=== PATIENT | female | born 2005 | race Caucasian/White ===

== ENCOUNTER 2023-11-29 13:24 | Outpatient (CLI) | payer OTHER, SELFPAY ==
--- NOTE | ~2023-11-29 | US_ITS ---
EXAMINATION: US OB /maternal detail DATE: 11/29/2023 14:44 INDICATION: Encounter for screening. TECHNIQUE: Real-time ultrasound of the pelvis was performed. COMPARISON: None. FINDINGS: There is a single living fetus in breech presentation. The placenta is posterior, well away from the cervix. heart rate is 157 beats per minute (bpm). The amniotic fluid index is 12.4 cm, which i s normal. The cervical length is 5.1 cm on transabdominal images, which is normal. The following biometric data were obtained: Biparietal diameter (BPD): 5.0 cm; head circumference (HC): 19.3 cm; abdominal circumference (AC): 17 .0 cm; femur length (FL): 3.8 cm. These measurements are concordant. Estimated weight is 460 g +/- 69 g, which correlates with the 20th percentile when 03/31/24 is u sed as estimated date of delivery. As single measurements, these parameters are each equal to the following estimated gestational ages: BPD: 21 weeks 0 days. HC: 21 weeks 4 days. AC: 22 weeks 0 days. FL: 22 weeks 0 days. estimated gestational age based solely on measurements from this exam is 21 weeks 5 days +/- 1 weeks 4 days. The cerebral ventricles, cerebellum, cisterna magna, lip, and visualized portions of the spine are no rmal. The heart is normal. The diaphragm, stomach, kidneys, and bladder are normal. There are two umb ilical arteries to yield a 3-vessel cord. The cord insertion is normal. IMPRESSION: 1. Single living fetus in breech presentation. 2. Estimated weight is 460 g +/- 69 g, which correlates with the 20th percentile when 03/31/24 is used as estimated date of delivery. 3. Normal anatomic survey. Reviewed, dictated and finalized at location E. CHAIN DYEING MACHINE OPERATOR IMPRESSION: 1. Single living fetus in breech presentation. 2. Estimated weight is 460 g +/- 69 g, which correlates with the 20th pe rcentile when 03/31/24 is used as estimated date of delivery. 3. Normal anatomic survey.
== END 2023-11-29 13:25 | disposition home or self-care (01) ==
PROVIDERS: PCP Obstetrics & Gynecology; Visit Provider Obstetrics & Gynecology
DX: Z36.9 Encounter for antenatal screening, unspecified (principal)
CPT/HCPCS: 76805

== ENCOUNTER 2024-03-15 15:00 | Outpatient (RCR) | payer OTHER, SELFPAY ==
--- NOTE | ~2024-03-15 | US_ITS ---
EXAMINATION: US OB limited w BPP DATE: 03/15/2024 16:57 INDICATION: Variable decelerations. IUGR. TECHNIQUE: Real-time pelvic ultrasound was performed. The interpreting radiologist was not present fo r the study. COMPARISON: 11/29/2023 FINDINGS: There is a single living fetus in vertex presentation. The placenta is fundal. cardiac activit y and movement are demonstrated. heart rate is 122 beats per minute (bpm). RIO is normal measuring 9.2 cm. Biophysical profile performed by the technologist: breathing (30 sec sustained breathing in 30 minutes): 2 out of 2 movement (3 gross body movements in 30 minutes): 2 out of 2 tone (one episode of vnqyxro-nsnibvezb-eoteiig limb movement): 2 out of 2 Amniotic fluid pocket (2 cm): 2 out of 2 Total score: 8 out of 8 IMPRESSION: 1. Single living intrauterine in vertex presentation with heart rate of 122 bpm. 2. Normal RIO measures 9.2 cm. 3. Biophysical profile 8 out of 8. Reviewed, dictated and finalized at location B.
[2024-03-15 17:05] VITALS: BP 114/75; PULSE 90
== END 2024-04-30 08:17 | disposition home or self-care (01) ==
LOC: ANHOBOP 15:00
PROVIDERS: Visit Provider Obstetrics & Gynecology
DX: O36.5930 Maternal care for other known or suspected poor fetal growth, third trimester, not applicable or unspecified (principal); Z3A.37 37 weeks gestation of pregnancy
CPT/HCPCS: 59025; 76815; 76819

== ENCOUNTER 2024-04-03 00:27 | Inpatient (IN) | payer OTHER, SELFPAY ==
[2024-04-03] VITALS (143 sets, daily range): BP systolic 98–184; BP diastolic 67–100; PULSE 31–187; RESP 16–20; TEMP 36.1–37.4; O2SAT 81–100; BMI 21.1
[2024-04-03 01:15] LABS: Basophils Absolute Auto 0.1 K/mm3 (0.0-0.1); Basophils Percent Auto 0.5 % (0.2-1.2); Eosinophils Absolute Auto 0.1 K/mm3 (0-0.3); Eosinophils Percent Auto 0.9 % (0-4.4); Hematocrit 37.1 % (37.0-47.0); Hemoglobin 12.6 g/dL (12.0-15.0); Immature Granulocyte Absolute 0.06 K/mm3 (0.00-0.031); Immature Granulocyte Percent A 0.5 % (0-0.5); Lymphocytes Absolute Auto 3.01 K/mm3 (0.9-3.2); Lymphocytes Percent Auto 23.6 % (18.3-44.2); Mean Corpuscular Hemoglobin 31.7 pg (26-34); Mean Corpuscular Volume 93.2 fl (80-100); Mean Platelet Volume 12.1 fl (7.4-10.4); Monocytes Absolute Auto 0.7 K/mm3 (0.1-0.6); Monocytes Percent Auto 5.8 % (2.6-8.5); Neutrophils Absolute Auto 8.7 K/mm3 (1.3-6.7); Neutrophils Percent Auto 68.7 % (45.5-73.1); Platelet Count Result 196 k/mm3 (150-375); Red Blood Count 3.98 M/mm3 (4.2-5.4); Red Cell Distribution Width 12.8 % (11.5-14.5); White Blood Count 12.7 K/mm3 (4.5-10.0)
[2024-04-03] MEDS: DINOPROSTONE 10 MG VAG INSERT VAGINAL (01:39)
--- NOTE | 2024-04-03 02:06 | WPDANESEPP ---
Anes - Eval Pre Procedure Procedure: labor epidural Date/Time: 04/03/24 02:06 Surgeon: rita Preop Diagnosis: pain during labor Pre Op Diagnosis: IOL Patient Data Age: 18 Gender: F Height: Weight: Last Vital Signs Pulse 84 04/03/24 02:00 BP 126/77 04/03/24 02:00 Pulse Ox 100 04/03/24 02:01 Allergies Allergy/AdvReac Type Severity Reaction Status Date / Time No Known Allergies Allergy Unknown Verified 03/15/24 15:21 Home Medications Medication Instructions Recorded Confirmed Type vit no.95-ferrous 1 tablet PO DAILY 03/15/24 03/15/24 History fumarate 28 mg-folic acid 800 mcg tablet () Laboratory Tests 04/03/24 00:57 WBC 12.7 H K/mm3 (4.5-10.0) RBC 3.98 L M/mm3 (4.2-5.4) Hgb 12.6 g/dL (12.0-15.0) Hct 37.1 % (37.0-47.0) MCV 93.2 fl (80-100) MCH 31.7 pg (26-34) MCHC 34.0 g/dl (32-36) RDW 12.8 % (11.5-14.5) Plt Count 196 k/mm3 (150-375) MPV 12.1 H fl (7.4-10.4) Immature Gran % (Auto) 0.5 % (0-0.5) Neut % (Auto) 68.7 % (45.5-73.1) Lymph % (Auto) 23.6 % (18.3-44.2) [place] % (Auto) 5.8 % (2.6-8.5) Eos % (Auto) 0.9 % (0-4.4) Baso % (Auto) 0.5 % (0.2-1.2) Lymph # (Auto) 3.01 K/mm3 (0.9-3.2) [place] # (Auto) 0.7 H K/mm3 (0.1-0.6) Eos # (Auto) 0.1 K/mm3 (0-0.3) Baso # (Auto) 0.1 K/mm3 (0.0-0.1) Abs Immat Gran (auto) 0.06 H K/mm3 (0.00-0.031) Absolute Neuts (auto) 8.7 H K/mm3 (1.3-6.7) Absolute Nucleated RBC 0.000 K/mm3 (0.0-0.012) Nucleated RBC % 0.0 % (0.0-0.2) RPR Pending Blood Type A Positive Antibody Screen Pending Patient hx anesthesia problems: none Family hx anesthesia problems: none Results Review: All pre-operative results and documents have been reviewed as part of the pre-operative evaluation. [facility] Social History Social History Smoking status: Never smoker Do You Feel Safe in your Home?: Yes Lack of Transportation: No Lack of Food: Never True Current Housing: I Have Housing Concerned About Future Housing: No Difficulty Paying Gas/Electric Bills: No Difficulty Paying for Meds: No Currently Unemployed: No Education: High School Diploma/GED Difficulty w/ Childcare or Family Care: No Exam Day of Procedure 04/03/24 02:06
[2024-04-03] MEDS: LACTATED RINGERS 1,000 ML 125 ML IV CONT (09:00)
[2024-04-03] MEDS: TERBUTALINE SULFATE 1 MG/ML VIAL 0.25 MG SUB-Q (09:04)
--- NOTE | 2024-04-03 09:06 | PM.IMHP ---
H&P: HPI History of Present Illness Date/Time: 04/03/24 09:06 Chief Complaint: Here for induction of labor Narrative: 18 y/o G1 at 40 3/7 weeks here for induction of labor for IUGR and oligohydramnios. She had late and inconsistent care. 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 She was referred to [facility], but did not make the appointment. She has bipolar disorder and stopped Trileptal during - has felt fine, but has also not followed up with her psychiatrist. She smokes an electronic cigarette and marijuana. Chlamydia cervicitis was treated and we have a negative test of cure. GBS pos. GCT normal at 126. NIPT low risk. Ultrasound exam yesterday shows 5#12oz, <10th percentile, with RIO 2cm, vertex. I offered induction of labor. Cervidil last night, has fallen out this morning. Review of Systems Review of Systems: All systems reviewed & are unremarkable except as noted in HPI and below PMFSH Past Medical History Medical History Chlamydia infection affecting Chromosomal abnormality Electronic cigarette use History of bipolar disorder Marijuana use Social History Social History Social History: electronic cigarette use Smoking status: Never smoker Substance use type: marijuana Do You Feel Safe in your Home?: Yes Lack of Transportation: No Lack of Food: Never True Current Housing: I Have Housing Concerned About Future Housing: No Difficulty Paying Gas/Electric Bills: No Difficulty Paying for Meds: No Currently Unemployed: No Education: Grade School Difficulty w/ Childcare or Family Care: No Spiritual care concerns: No Meds Home Medications and Allergies Home Medications Medication Instructions Recorded Confirmed Type vit no.95-ferrous 1 tablet PO DAILY 03/15/24 03/15/24 History fumarate 28 mg-folic acid 800 mcg tablet () Allergies Allergy/AdvReac Type Severity Reaction Status Date / Time No Known Allergies Allergy Unknown Verified 03/15/24 15:21 Vital Signs Vital Signs - 24 hr 04/03/24 01:04 04/03/24 01:09 04/03/24 01:14 Temperature Pulse Rate Blood Pressure Pulse Oximetry 99 100 99 04/03/24 01:15 04/03/24 01:19 04/03/24 01:24 Temperature Pulse Rate 93 Blood Pressure 127/80 Pulse Oximetry 99 99 04/03/24 01:29 04/03/24 01:30 04/03/24 01:34 Temperature Pulse Rate 83 Blood Pressure 122/80 Pulse Oximetry 99 99 04/03/24 01:39 04/03/24 01:46 04/03/24 01:51 Temperature Pulse Rate Blood Pressure Pulse Oximetry 99 99 99 04/03/24 01:56 04/03/24 02:00 04/03/24 02:01 Temperature 36.8 C Pulse Rate 84 Blood Pressure 126/77 Pulse Oximetry 99 100 04/03/24 02:06 04/03/24 02:11 04/03/24 02:15 Temperature Pulse Rate 85 Blood Pressure 128/86 Pulse Oximetry 99 99 04/03/24 02:16 04/03/24 02:21 04/03/24 02:24 Temperature Pulse Rate Blood Pressure Pulse Oximetry 99 99 99 04/03/24 02:29 04/03/24 02:30 04/03/24 02:34 Temperature Pulse Rate 84 Blood Pressure 131/93 H Pulse Oximetry 99 99 04/03/24 02:39 04/03/24 02:44 04/03/24 02:49 Temperature Pulse Rate Blood Pressure Pulse Oximetry 98 99 100 04/03/24 02:54 04/03/24 02:59 04/03/24 03:00 Temperature Pulse Rate 85 Blood Pressure 123/83 Pulse Oximetry 98 98 04/03/24 03:04 04/03/24 03:09 04/03/24 03:14 Temperature Pulse Rate Blood Pressure Pulse Oximetry 98 98 98 04/03/24 03:19 04/03/24 03:24 04/03/24 03:29 Temperature Pulse Rate Blood Pressure Pulse Oximetry 98 98 98 04/03/24 03:34 04/03/24 03:46 04/03/24 03:51 Temperature Pulse Rate Blood Pressure Pulse Oximetry 99 100 99 04/03/24 03:56 04/03/24 04:00 04/03/24 04:01 Temperature 36.6 C Pulse Rate 88 Blood Pressure 126/92 H Pulse Oximetry 100 100
[2024-04-03] MEDS: FAMOTIDINE 20 MG/2 ML VIAL IV PUSH (11:38)
[2024-04-03] MEDS: ONDANSETRON INJ 4 MG/2 ML VIAL IV PUSH (11:41)
[2024-04-03] MEDS: ACETAMINOPHEN 500 MG TABLET 1000 MG PO (11:42)
--- NOTE | 2024-04-03 11:46 | P.PNOB_ITS ---
Pain Control Date/time seen: 04/03/24 11:46 Comments: She has had several episodes of decelerations with uterine hyperstimulation. Each episode has responded to the usual efforts, but cervix is still 2-3 cm/80/- 2 and we have not started oxytocin yet. I have offered primary for nonreassuring status. She understands risks of surgery to include risks of anesthesia, risks of pain, infection, bleeding, blood products, thromboembolic phenomena and damage to adjacent structures such as bowel, bladder, ureters, blood vessels and nerves. She understands all these risks and elects to proceed with surgery.
--- NOTE | 2024-04-03 11:47 | P.PNAN_ITS ---
Anes - Eval Final PreProcedure Day of Procedure 04/03/24 11:47 Patient weight: normal Heart: regular rate and rhythm Lungs: clear to auscultation and normal air movement Airway: Mallampati scale class II Neurological: alert and oriented Last oral intake: >/= 8 hours ASA classification: II Emergent: no Anesthetic plan: proceed Anesthesia type and monitoring: regional spinal and standard monitoring Results Review: All pre-operative results and documents have been reviewed as part of the pre- operative evaluation. Informed Consent: The patient's anesthetic plan and its attendant risks and benefits were discussed with the patient/family/POA. Questions were solicited and answers provided to the satisfaction of the patient/family/POA.
--- NOTE | 2024-04-03 12:46 | P.PCNOB_ITS ---
OB - Delivery Note Procedure Delivery date: 04/03/24 Pre-op diagnosis: Oligohydramnios and Positive Group B Strep (GBS) Post-op Diagnosis: Same Induction method: Per Cervidil Protocol Delivery augmentation: Rupture of Membranes Delivery monitor: External FHT, External Uterine and Internal Uterine Procedure Performed: Primary Surgeon: Mt Valenzuela MD Anesthesia type: Spinal Description of Procedure/Findings: Findings: Normal-appearing uterus, tubes and ovaries. Techniques: The patient was taken to the operating room where she was prepared and draped in the usual sterile fashion in dorsal supine position with a leftward tilt. She received cefazolin and azithromycin preoperatively. Spinal anesthesia was found to be adequate. A Pfannenstiel skin incision was made and carried through to the underlying layer of the fascia. The fascia was incised in the midline and the incision was extended laterally. The fascia was dissected free of the underlying rectus muscles. The rectus muscles were sepa rated in the midline. The peritoneum was identified, tented up and entered sharply. The peritoneal incision was extended superiorly and inferiorly with good visualization of the bladder. The bladder blade was placed. The vesicouterine peritoneum was identified, tented up and entered sharply. The incision was extended laterally and the bladder flap was developed. The bladder blade was replaced. The uterus was then incised sharply in a transverse fashion along the lower uterine segment. The incision was extended laterally. The 's head was delivered atraumatically to the sterile field, followed by the body. The nose and mouth were bulb suctioned. After a delay, the cord was clamped and cut. The infant was handed off the field. Cord blood was collected. The placenta was removed manually and was passed off the field. The uterus was exteriorized and cleared of all clots and debris. The uterine incision was reapproximated using 0 Monocryl in a running, locked fashion. E xcellent hemostasis resulted as did excellent reapproximation of the normal anatomy. The uterus was returned the abdomen. The pelvis was irrigated copiously with warmed normal saline. Rigorous hemostasis was assured. The fascial layer was reapproximated using 0 Vicryl in a running fashion. The skin was closed with a running, subcuticular stitch of 4 0 Vicryl. Dermaflex was applied externally. Sponge, lap, needle and instrument counts were correct. The patient was taken to the recovery room in stable condition. The went to the nursery in stable condition. I was present and scrubbed the entire procedure. Specimen: Yes (Cord blood) Estimated Blood Loss: 205 Drains: Yes (grayson) Packing: No Pathology: Yes (cord blood, placenta) Complications: None Condition: Stable Disposition: PACU [place] Baby Date of : 04/03/24 Time of : 12:17 Weeks of gestation at delivery: 40 Infant gender: Male Weight (pounds): 6 Weight (ounces): 6 presentation: vertex Placenta delivery description: Manual Removal and Normal Configuration Cord Vessel Description: 3 Vessels and Delayed Cord Clamping score one minute: 8 score five minutes: 9
--- NOTE | 2024-04-03 12:49 | PM.OBDSVD ---
DS: Admitting Diagnosis Discharge Date 04/06/24 Admitting Diagnosis IUP at 40 3/7 weeks Oligohydramnios GBS colonization DS: Discharge Diagnosis Discharge Diagnosis (1) delivery delivered: Code(s): O82 - Encounter for delivery without indication Status: Acute OB - DS: Summary OB Procedures : NST OB Procedures Intrapartum: and GBS prophylaxis OB Procedures: : None Peripartum Data Procedures: Procedures Operation Date: 04/03/24 11:50 <No data on this case meets the specified criteria> Time Spent with Patient Time attestation: Total time spent providing and/or coordinating discharge services: DS: Data Data Completed and Pending Labs on day of discharge: Labs from last 24 hours 04/03/24 00:57 WBC 12.7 H RBC 3.98 L Hgb 12.6 Hct 37.1 MCV 93.2 MCH 31.7 MCHC 34.0 RDW 12.8 Plt Count 196 MPV 12.1 H Immature Gran % (Auto) 0.5 Neut % (Auto) 68.7 Lymph % (Auto) 23.6 [place] % (Auto) 5.8 Eos % (Auto) 0.9 Baso % (Auto) 0.5 Lymph # (Auto) 3.01 [place] # (Auto) 0.7 H Eos # (Auto) 0.1 Baso # (Auto) 0.1 Abs Immat Gran (auto) 0.06 H Absolute Neuts (auto) 8.7 H Absolute Nucleated RBC 0.000 Nucleated RBC % 0.0 RPR Pending Blood Type A Positive Antibody Screen Negative Discharge Plan Discharge Attending physician on discharge: Mt Valenzuela Discharging Clinician: Mt Valenzuela Patient Disposition: Home, Self-Care Activity: may shower, may drive after 2 weeks and pelvic rest Diet: regular Wound Care Instructions: incision open to air Discharge Instructions: Call or return if temperature above 100.4? F, increased abdominal pain, increased vaginal bleeding or any new problems. Education: Mom and Baby Guide Given to: Mother Follow-Up: Call your delivering provider's office for an appointment to be seen in: 6 Weeks Mom and baby should come to the [facility] for the follow-up appointment. Appointment Date/Time: April 07, 2024 at 8:00 am What to expect at your follow-up visit: Blood Pressure Check Physical Assessment Call [phone] if you are unable to keep your appointment time. BREAST CARE: * Wear a snug supportive bra. * For engorgement discomfort: Breast Feeding: * Apply warm moist washcloths * Express milk as needed to relieve engorgement * Wear loose clothing * For sore nipples: * Identify correct latch-on * Apply warm moist washcloths before and after nursing * Air dry nipples after nursing * May apply Lansinoh cream to nipples ABDOMINAL INCISION: (if applicable) * Allow incision to air dry * Do NOT use lotions for powders on your incision * When showering, allow soap and water to run over the incision, but do not wash incision EPISIOTOMY/PERINEAL CARE: * Until bleeding stops, use your cindy bottle after urinating * Change your pad frequently throughout the day * No tub baths until seen by your physician - You may shower ACTIVITY: * Rest as much as possible. * Do not exercise or lift anything heavier than your baby (such as laundry or other children.) * Avoid stairs or driving as much as possible. * Do not put anything into the vagina. No douching, tampons, or sexual activity until seen by physician. NOTIFY PHYSICIAN IF YOU HAVE ANY QUESTIONS OR IF ANY OF THE FOLLOWING SYMPTOMS OCCUR: * If your incision becomes red, swollen, or more painful than what you have experienced in the hospital. * If your vaginal bleeding becomes foul smelling. * If your vaginal bleeding becomes more heavy than a period or if your bleeding changes from pink to bright red. However, you may pass an occasional walnut-sized clot once or twice for the first week . * If you experience a sharp, shooting pain in you calves. * If you discover a hard, reddened area on your breast or if you experien
[2024-04-03 13:43] LABS: Rapid Plasma Reagin Non-Reactive (NonReactive)
--- NOTE | 2024-04-03 15:13 | OBPPTRN ---
Patient transferred to post room #290 via stretcher. Support person present. Oriented to unit, room, information board, rooming in, admission packet and security measures. Patient verbalizes understanding.
[2024-04-03] MEDS: KETOROLAC 15 MG/ML VIAL (*BKC) IV PUSH (17:36)
[2024-04-03] MEDS: DOCUSATE SODIUM 100 MG CAPSULE PO (17:36)
[2024-04-03] MEDS: SIMETHICONE 80 MG TAB.CHEW PO (17:36)
[2024-04-03] MEDS: ACETAMINOPHEN 325 MG TABLET 650 MG PO (17:36)
[2024-04-04] VITALS (7 sets, daily range): BP systolic 113–146; BP diastolic 80–107; PULSE 76–81; RESP 16–20; TEMP 36.6–37; O2SAT 100
[2024-04-04] MEDS: KETOROLAC 15 MG/ML VIAL (*BKC) IV PUSH ×3 (00:36→13:08)
[2024-04-04] MEDS: ACETAMINOPHEN 325 MG TABLET 650 MG PO ×4 (00:36→19:15)
[2024-04-04] MEDS: DEXTROSE 5%/0.45% SOD CHL 1,000 ML 125 ML IV CONT (00:51)
[2024-04-04 05:07] LABS: Basophils Absolute Auto 0.1 K/mm3 (0.0-0.1); Basophils Percent Auto 0.5 % (0.2-1.2); Eosinophils Absolute Auto 0.1 K/mm3 (0-0.3); Eosinophils Percent Auto 0.5 % (0-4.4); Hematocrit 33.4 % (37.0-47.0); Hemoglobin 10.9 g/dL (12.0-15.0); Immature Granulocyte Absolute 0.04 K/mm3 (0.00-0.031); Immature Granulocyte Percent A 0.3 % (0-0.5); Lymphocytes Absolute Auto 2.23 K/mm3 (0.9-3.2); Lymphocytes Percent Auto 16.9 % (18.3-44.2); Mean Corpuscular HGB Conc 32.6 g/dl (32-36); Mean Corpuscular Hemoglobin 31.4 pg (26-34); Mean Corpuscular Volume 96.3 fl (80-100); Mean Platelet Volume 12.3 fl (7.4-10.4); Monocytes Absolute Auto 0.8 K/mm3 (0.1-0.6); Monocytes Percent Auto 5.9 % (2.6-8.5); Neutrophils Percent Auto 75.9 % (45.5-73.1); Platelet Count Result 153 k/mm3 (150-375); Red Blood Count 3.47 M/mm3 (4.2-5.4); White Blood Count 13.2 K/mm3 (4.5-10.0)
[2024-04-04] MEDS: LIDOCAINE 5% PATCH 1 PATCH TRANSDERM (07:12)
--- NOTE | 2024-04-04 07:17 | P.PNAN_ITS ---
Anes-Prog Note L&D Date/Time: 04/04/24 07:17 Comfortable throughout: section Neuraxial method: spinal Epidural/Spinal procedure site: clean & non-tender Neuro status: Neuro function grossly intact. Cardiovascular status: normal Respiratory status: normal Airway patency: baseline Mental status: baseline Post-Op hydration status: normal Vital Signs: Last Vital Signs Temp 36.6 C 04/04/24 00:00 Pulse 76 04/04/24 00:00 Resp 20 04/04/24 00:00 BP 131/98 H 04/04/24 00:00 Pulse Ox 100 04/04/24 00:00 O2 Del Method Room Air 04/03/24 15:15 Pain score (VAS): 2/10 I/O: Intake & Output 04/03/24 04/03/24 04/04/24 15:59 23:59 07:59 Output Total [phone] [facility] [phone] Post-procedural complaints: none Patient feedback: Patient satisfied with anesthetic care.
--- NOTE | 2024-04-04 07:18 | WPDANLDNPN2 ---
Anes-Prog Note L&D-Neuraxial Date/Time: 04/04/24 07:18 Neuraxial medications: intrathecal PF morphine Opiod-related complaints: none Patient feedback: Patient satisfied with post-operative pain management.
--- NOTE | 2024-04-04 08:39 | P.PNOB_ITS ---
OB - PN: Subj Subjective Date/time seen: 04/04/24 08:39 Narrative: Pain OK. Tolerating diet. OB - PN: Obj Data Labs 04/04/24 03:30 Labs: Laboratory Results - last 24 hr 04/03/24 04/04/24 00:57 03:30 WBC 13.2 H RBC 3.47 L Hgb 10.9 L Hct 33.4 L MCV 96.3 MCH 31.4 MCHC 32.6 RDW 13.0 Plt Count 153 MPV 12.3 H Immature Gran % (Auto) 0.3 Neut % (Auto) 75.9 H Lymph % (Auto) 16.9 L [place] % (Auto) 5.9 Eos % (Auto) 0.5 Baso % (Auto) 0.5 Lymph # (Auto) 2.23 [place] # (Auto) 0.8 H Eos # (Auto) 0.1 Baso # (Auto) 0.1 Abs Immat Gran (auto) 0.04 H Absolute Neuts (auto) 10.0 H Absolute Nucleated RBC 0.000 Nucleated RBC % 0.0 RPR Non-reactive OB - PN A/P Plan Comments: A: POD#1, doing well. P: Routine care. Exam Narrative: AVSS I/O OK ABD soft, nontender, fundus firm. Incision c/d/i. EXT nontender
[2024-04-04] MEDS: SIMETHICONE 80 MG TAB.CHEW PO (10:00)
--- NOTE | 2024-04-04 10:51 | PC.NURSE ---
[id number] Breast pump provided prior to introductions due to separation. Mother shared that pumping was causing her pain. Patient initiated pumping with suction turned up too high. Instructions given on cleaning, care, usage, that there should be no pain and how to adjust the suction for gently efficient nipple stretching. Patient was assessed for correct placement, flange size, to pump for comfort and nipple stretching/stimulation for adequate milk production every 3 hours (8 times in 24 hours) 1-2 times at night. Mother voiced understanding of the education shared along with mom/baby guide and the pump measurement, flange fit handout for additional resource information. Reported to the Primary RN.
[2024-04-04] MEDS: HYDROcodone/acetaminophen (*CRX) 5-325 MG TABLET 1 TAB PO (15:58)
[2024-04-04] MEDS: IBUPROFEN 600 MG TABLET PO (19:15)
[2024-04-04] MEDS: LABETALOL HCL 100 MG TABLET 200 MG PO (19:54)
[2024-04-05] MEDS: IBUPROFEN 600 MG TABLET PO ×3 (04:11→21:44)
[2024-04-05] MEDS: ACETAMINOPHEN 325 MG TABLET 650 MG PO ×3 (04:11→21:44)
[2024-04-05 07:40] VITALS: BP 135/76; PULSE 78; RESP 16; TEMP 37.1; O2SAT 100
[2024-04-05] MEDS: SIMETHICONE 80 MG TAB.CHEW PO ×3 (07:58→16:00)
[2024-04-05] MEDS: TETANUS,DIPHTHERIA,AC PERTUSSIS ADULT (0.5 ML) BOOSTRIX IM (07:58)
[2024-04-05] MEDS: LIDOCAINE 5% PATCH 1 PATCH TRANSDERM (07:59)
[2024-04-05] MEDS: DOCUSATE SODIUM 100 MG CAPSULE PO ×2 (07:59→16:00)
--- NOTE | 2024-04-05 11:25 | PCCCNOTE ---
Addendum entered by ANIVAL Reyna 04/11/24 09:52: Recv'd DCFS email that states: Your information has been reviewed and assessed by a Tar Heater Operator. The information you provided did not meet one of the criteria for an investigation (eligible victim, eligible perpetrator, eligible event, or jurisdiction). If there is a current open case involving this family, the assigned worker will be notified of your report so he/she can follow up; additionally the information provided has been documented and will be kept on file. Addendum entered by ANIVAL Reyna 04/11/24 08:36: Baby's umbilical cord results show +THC. DCFS Report made online - #[id number]. Original Note: Recvd consult due to poor care and THC use during . Baby's umbilical cord drug screen is pending. Pt. self reports THC use, and states used to increase appetite. Pt. reports poor care due to lack of transportation. Pt. has hx of bipolar disorder, and was seeing a Guillermina RANGEL via telehealth. Pt. unable to provide name of company. Pt. reports due to insurance change, she plans to establish with a new counselor and psych local to her home in [facility]. Lists of counseling and psych provided to pt. Pt. reports Guillermina recommended stopping her medication for bipolar disorder, but pt. plans to get on medication again once established with new care. Pt. reports she and baby will be living with SYLVAIN Adams and pt's brother Vinay. Pt. reports her mother and two sisters will be supportive. Pt. reports having necessary baby supplies. Pt. reports already established with [facility], and plans to follow up with [employer] [facility] for food stamps now that baby is born. Pt. denies DCFS involvement. resources provided.
[2024-04-05] MEDS: MULTIVIT/MIN/PREN/FOL AC/IRON TABLET 1 TAB PO (14:00)
--- NOTE | 2024-04-05 17:00 | PM.OBPNVD ---
OB - PN: Subj Subjective Date/time seen: 04/05/24 17:00 Narrative: Pain OK. Tolerating diet. Would like circumcision for son. OB - PN: Obj Data Labs 04/04/24 03:30 OB - PN A/P Plan day: 2 Comments: A: POD#2, doing well. P: Routine care. Reviewed circ. Exam Narrative: AVSS I/O OK ABD soft, nontender, fundus firm. Incision c/d/i. EXT nontender
[2024-04-05 19:15] VITALS: BP 129/90; PULSE 94; RESP 18; TEMP 37.4; O2SAT 99
[2024-04-06] MEDS: IBUPROFEN 600 MG TABLET PO ×2 (03:39→09:16)
[2024-04-06] MEDS: ACETAMINOPHEN 325 MG TABLET 650 MG PO ×2 (03:39→09:16)
--- NOTE | 2024-04-06 07:11 | PM.OBPNVD ---
OB - PN: Subj Subjective Date/time seen: 04/06/24 07:11 Patient comments: no complaints and pain well controlled baby status: doing well OB - PN: Obj Data Labs 04/04/24 03:30 OB - PN A/P Plan day: 3 Plan: routine care, discharge home and follow up 6 weeks (4) Time Spent With Patient Time: Total time spent is greater than 50% in coordination of care (as documented) at patient's floor/unit and/or counseling patient: Time with patient: less than 15 minutes Exam Const: General: cooperative, healthy appearing and comfortable Nutritional Appearance: average body habitus Orientation/consciousness: oriented to person, oriented to place and oriented to time HENMT: Head: normal to inspection Resp: Effort & Inspection: normal respiratory effort Cardio: Rate: regular rate Rhythm: regular rhythm Heart sounds: S1 normal heart sound present and S2 normal heart sound present GI: Inspection: normal to inspection and incision (cdi)
[2024-04-06 08:45] VITALS: BP 139/95; PULSE 83; RESP 16; TEMP 37.2; O2SAT 99
[2024-04-06] MEDS: SIMETHICONE 80 MG TAB.CHEW PO (09:15)
[2024-04-06] MEDS: MULTIVIT/MIN/PREN/FOL AC/IRON TABLET 1 TAB PO (09:16)
[2024-04-06] MEDS: DOCUSATE SODIUM 100 MG CAPSULE PO (09:16)
--- NOTE | 2024-04-06 11:17 | PC.NURSE ---
Patient viewed the discharge video Mother & Baby Care, The First Two Weeks . Patient was given the opportunity and encouraged to ask questions. Patient verbalized understanding of information shared and has been given the mother/baby guide for home reference.
--- NOTE | 2024-04-14 12:33 | WPDHPUPDATE1 ---
History and Physical Update Update Date/Time: 04/14/24 12:33 History and Physical has been reviewed, including an updated exam of the patient. There are NO changes in the patient's condition. Risks, benefits, and alternatives have been discussed and questions answered. Patient agrees to proceed with procedure.
== END 2024-04-06 12:40 | disposition home or self-care (01) | DRG 540 ==
LOC: ANHLDR 12:51 → ANHOB2 04-06 10:12 → ANHLDR 04-10 10:40 → ANHOB2 04-10 10:40
PROVIDERS: Admitting Provider Obstetrics & Gynecology; Visit Provider Obstetrics & Gynecology
PROC: 10D00Z1 Extraction of Products of Conception, Low, Open Approach (ICD-10-PCS; CPT 59514; principal; 2024-04-03 11:50)
DX: O41.03X0 Oligohydramnios, third trimester, not applicable or unspecified (principal); Z37.0 Single live birth; Z3A.40 40 weeks gestation of pregnancy; O36.5930 Maternal care for other known or suspected poor fetal growth, third trimester, not applicable or unspecified; O99.824 Streptococcus B carrier state complicating childbirth; O99.334 Smoking (tobacco) complicating childbirth; F17.290 Nicotine dependence, other tobacco product, uncomplicated; O99.324 Drug use complicating childbirth; F12.90 Cannabis use, unspecified, uncomplicated; O76 Abnormality in fetal heart rate and rhythm complicating labor and delivery
CPT/HCPCS: 36415; 85025; 86592; 86850; 86900; 86901; 88307; 90715; A9270; J1200; J1885; J2175; J2274; J2405; J2590; J3105; J7120